=== PATIENT | female | born 1980 | race Two or more races ===

== ENCOUNTER 2022-07-06 18:24 | Outpatient (CLI) | payer MEDICAID, OTHER | END 2022-07-06 18:25 | disposition critical access hospital (66) | LOC: EMS 18:24 | DX: R45.851 Suicidal ideations (principal); F10.90 Alcohol use, unspecified, uncomplicated | CPT/HCPCS: A0425; A0429 ==

== ENCOUNTER 2022-07-06 18:44 | Emergency (ER) | payer MEDICAID, OTHER ==
[2022-07-06 19:02] LABS: BASOPHILS # (AUTO) 0.2 10^3/uL (0.0-0.1); BASOPHILS % (AUTO) 1.2 %; EOSINOPHILS % (AUTO) 0.3 %; HCT - HEMATOCRIT 39.3 % (37.0-47.0); HGB - HEMOGLOBIN 13.4 g/dL (12.0-16.0); LYMPHOCYTES # (AUTO) 2.6 10^3/uL (1.5-3.5); MEAN CORPUSCULAR HEMOGLOBIN 32.4 pg (27.0-31.0); MEAN CORPUSCULAR HGB CONC 34.1 g/dL (32.0-36.0); MEAN CORPUSCULAR VOLUME 94.9 fL (81.0-99.0); MEAN PLATELET VOLUME 8.5 fL (7.9-10.8); MONOCYTES # (AUTO) 0.6 10^3/uL (0.0-1.0); MONOCYTES % (AUTO) 4.3 %; NEUTROPHILS # (AUTO) 10.8 10^3/uL (1.5-6.6); NEUTROPHILS % (AUTO) 75.8 %; PLT - PLATELET COUNT 515 10^3/uL (130-450); RED BLOOD COUNT 4.14 10^6/uL (4.20-5.40); WHITE BLOOD COUNT 14.2 x10^3/uL (4.8-10.8)
[2022-07-06 19:15] LABS: MUDS CUTOFF CONCENTRATIONS CUTOFF CONC BELOW:
[2022-07-06 19:17] LABS: BILIRUBIN,URINE NEGATIVE (NEGATIVE); GLUCOSE, URINE (UA) NEGATIVE (NEGATIVE); KETONES,URINE (UA) 15 mg/dL (NEGATIVE); LEUKOCYTE ESTERASE, URINE NEGATIVE (NEGATIVE); NITRITE,URINE NEGATIVE (NEGATIVE); OCCULT BLOOD,URINE SMALL (NEGATIVE); PH,URINE 5.5 PH (5.0-7.5); PROTEIN,URINE 100 mg/dL (NEGATIVE); UROBILINOGEN,URINE 0.2 (NORMAL) E.U./dL (NORMAL)
[2022-07-06 19:17] LABS: ACETAMINOPHEN < 10 ug/mL (10-30); ALBUMIN 4.9 g/dL (3.2-5.5); ALBUMIN/GLOBULIN RATIO 1.4 (1.0-2.2); ALKALINE PHOSPHATASE 62 IU/L (42-121); ALT ALANINE AMINOTRANSFERASE 21 IU/L (10-60); AST ASPARTATE AMINOTRANSFERASE 23 IU/L (10-42); BILIRUBIN,TOTAL 0.7 mg/dL (0.2-1.0); BUN - BLOOD UREA NITROGEN 15 mg/dL (6-20); CARBON DIOXIDE - CO2 15 mmol/L (21-32); CHLORIDE 107 mmol/L (101-111); CK- CREATINE KINASE 106 IU/L (22-269); CREATININE 0.8 mg/dL (0.4-1.0); GFR - MDRD 79 (>89); GLUCOSE 80 mg/dL (70-100); LIPASE 21 U/L (22-51); MAGNESIUM 2.2 mg/dL (1.7-2.8); POTASSIUM 3.8 mmol/L (3.5-5.0); SALICYLATE < 6.0 mg/dL; SODIUM 139 mmol/L (135-145); TOTAL PROTEIN 8.5 g/dL (6.7-8.2)
[2022-07-06 19:19] LABS: CLARITY,URINE CLEAR (CLEAR); HCG UR QUAL NEGATIVE
[2022-07-06 19:25] LABS: BACTERIA,URINE Few /HPF (None Seen); RBC,URINE None Seen /HPF (0-5); SQUAMOUS EPITHELIAL CELL,UR MANY Squamous (<= Few); WBC,URINE 0-3 /HPF (0-5)
[2022-07-06 19:27] LABS: AMPHETAMINE SCREEN,URINE NEGATIVE (NEGATIVE); BARBITURATE SCREEN,UR NEGATIVE (NEGATIVE); BENZODIAZEPINES SCREEN, URINE NEGATIVE (NEGATIVE); COCAINE SCREEN URINE NEGATIVE (NEGATIVE); METHADONE SCREEN, URINE NEGATIVE (NEGATIVE); METHAMPHETAMINES SCREEN, URINE NEGATIVE (NEGATIVE); OPIATE SCREEN, URINE NEGATIVE (NEGATIVE); OXYCODONE SCREEN, URINE NEGATIVE (NEGATIVE); PROPOXYPHENE SCREEN, URINE NEGATIVE (NEGATIVE); THC CANNABINOID SCREEN, URINE NEGATIVE (NEGATIVE); TRICYCLIC ANTIDEPRESSANT,URINE NEGATIVE (NEGATIVE)
[2022-07-06] MEDS ORDERED: ONDANSETRON ODT 4 MG TABLET TL STA (19:27)
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
--- NOTE | 2022-07-06 20:32 | Ultrasound Report ---
PROCEDURE: Pelvic w/Transvag+Doppler Comp INDICATIONS: pelvic pain, s/p miscarriage 1 week ago TECHNIQUE: Real-time scanning was performed of the pelvic organs, with image documentation. Additional endovagi nal scanning was necessary due to incomplete visualization of the adnexal and endometrial structures by transabdominal scanning. Doppler interrogation was performed of the ovaries bilaterally. COMPARISON: None. FINDINGS: Uterus: Uterus is anteverted and retroflexed and normal in size at 9.2 x 3.9 x 5.3 cm. The myometri um is mildly heterogeneous. The endometrium measures 5 mm in combined thickness. Trace fluid is see n within the endometrial canal. No significantly increased vascularity is seen within the endometrium . Ovaries: The right ovary measures 3.3 x 1.1 x 3.0 cm, with a calculated ovarian volume of 5.8 cc. T he left ovary measures 2.6 x 1.7 x 2.6 cm, with a calculated ovarian volume of 6.0 cc. Appropriate b lood flow to the ovaries with Doppler interrogation. Less than 12 follicles can be seen in each ova ry. No adnexal masses are seen. No cystic lesions measuring greater than 3 cm. Other: No pathologic free abdominal or pelvic fluid. IMPRESSION: 1.No sonographic signs of ovarian torsion. 2.No evidence of retained products of conception. Reviewed by: Burke Fitzgerald MD on 07/06/2022 8:30 PM PDT Approved by: Burke Fitzgerald MD on 07/06/2022 8:30 PM PDT Station ID: [id number]
[2022-07-07 06:19] VITALS: BP 108/73
== END 2022-07-07 06:15 | disposition home or self-care (01) ==
LOC: EDBD → ED 18:44
DX: R45.851 Suicidal ideations (principal); F10.920 Alcohol use, unspecified with intoxication, uncomplicated
CPT/HCPCS: 36415; 80053; 80306; 80307; 80320; 80329; 81001; 81003; 81025; 82550; 83690; 83735; 84443; 84702; 85025; 87086; 93975; 99283; 99284